=== PATIENT | female | born 1950 | race Caucasian/White ===

== ENCOUNTER → 2016-08-09 | Outpatient (CLI) | payer OTHER ==
[~2016-08-09] MED LIST: ACET-1256 PO; CALCTAB65 PO; LEVO125T5 PO; LOSA1TAB PO; MULTTAB58 PO
[2016-08-09 15:43] LABS: BASO % 0.8 %; BASO ABS # 0.08 K/uL (0-0.2); COMPLETE YES; EOS % 5.6 %; IG% 0.2 %; LYMPH % 28.4 %; MEAN CELL VOLUME 90.9 fL (80-100); MEAN CORPUSCULAR HEMOGLOBIN 30.1 pg (25-34); MEAN CORPUSCULAR HGB CONC 33.2 g/dl (32-36); MEAN PLATELET VOLUME 11.6 fL (7.4-10.4); MONO % 7.1 %; NEUT % 57.9 %; PLATELET COUNT 324 K/uL (130-400); RED BLOOD COUNT 4.18 M/uL (4.2-5.4); WHITE BLOOD COUNT 9.85 K/uL (4.8-10.8)
[2016-08-09 17:32] LABS: ALB/GLOB RATIO 0.8 (0.9-2); ALT/SGPT 27 U/L (12-78); AST/SGOT 15 U/L (15-37); BLOOD UREA NITROGEN 12 mg/dl (7-18); BUN/CREATININE RATIO 17.5 (10-20); CALCIUM 8.7 mg/dl (8.5-10.1); CARBON DIOXIDE 26 mmol/L (21-32); CHLORIDE 106 mmol/L (98-107); CREATININE 0.71 mg/dl (0.60-1.20); GLUCOSE 90 mg/dl (70-99); SODIUM 141 mmol/L (136-145)
[2016-08-09 17:41] LABS: ALKALINE PHOSPHATASE 63 U/L (45-117)
== END | disposition home or self-care (01) ==
LOC: C.LABSPEC 15:17
PROVIDERS: ATTEND Internal Medicine
DX: R05 Cough (principal); E03.9 Hypothyroidism, unspecified

== ENCOUNTER → 2016-08-15 | Outpatient (CLI) | payer OTHER ==
[~2016-08-15] MED LIST changes: -ACET-1256 PO; +LEVO125T4 PO; -LEVO125T5 PO; -LOSA1TAB PO
--- NOTE | 2016-08-15 13:58 | DIAGNOSTIC IMAGING REPORT ---
CHEST 2 VIEWS ROUTINE CLINICAL HISTORY: COUGH SHORTNESS OF BREATH COMPARISON STUDY: 06/24/2015 FINDINGS: The heart remains normal in size. There is underlying interstitial lung disease similar to the preceding study. There is no lobar consolidation. There are no pleural effusions. There is no overt failure.[ IMPRESSION: Chronic interstitial thickening, minimally progressive when compared the preceding study. Electronically signed by: Kin Naranjo M.D. 08/15/2016 1:56 PM Dictated Date/Time: 08/15/2016 1:56 PM
--- NOTE | 2016-08-17 07:07 | PULMONARY FUNCTION TEST ---
INTERPRETATION: The spirometry reveals normal air flow with no change in FEV1 with use of albuterol. Slight reduction in the forced vital capacity suggests a mild restrictive disorder that is supported by the volume time curve.
== END | disposition home or self-care (01) ==
LOC: C.RC 12:55
PROVIDERS: ATTEND Internal Medicine
DX: R05 Cough (principal); F17.200 Nicotine dependence, unspecified, uncomplicated

== ENCOUNTER → 2016-09-15 | Outpatient (CLI) | payer OTHER | END | disposition home or self-care (01) | LOC: C.CPL 13:28 | PROVIDERS: ATTEND Orthopaedic Surgery | DX: Z01.818 Encounter for other preprocedural examination (principal) ==

== ENCOUNTER → 2017-01-02 | Outpatient (CLI) | payer OTHER ==
[~2017-01-02] MED LIST changes: -LEVO125T4 PO; +LEVO125T5 PO
== END | disposition home or self-care (01) ==
LOC: C.LABSPEC 12:22
PROVIDERS: ATTEND Internal Medicine
DX: N39.0 Urinary tract infection, site not specified (principal)

== ENCOUNTER → 2017-01-09 | Outpatient (CLI) | payer OTHER ==
--- NOTE | 2017-01-10 08:38 | PULMONARY FUNCTION TEST ---
CLINICAL DATA: A 66-year-old female with a height of 63 inches and a weight of [address] Lundberg for evaluation of dyspnea. Spirometry pre- and post-bronchodilator, lung volumes, and DLCO were performed. FINDINGS: Pre-bronchodilator spirometry demonstrates mild restrictive changes. FVC was 60% of predicted. FEV1 was 65% of predicted. QAJ20-23 was 86% of predicted. There was no significant improvement after inhaled bronchodilator. FVC improved 2% to 62% of predicted. FEV1 improved 3% to 67% of predicted. PTJ10-35 improved 7% to 92% of predicted. Lung volumes suggest air trapping with residual volume of 195% of predicted. Expiratory reserve volume was reduced most likely secondary to obesity. DLCO was severely reduced at 48% of predicted with a normal DLCO/VA. IMPRESSION: Mild restrictive disease on spirometry with no significant improvement after inhaled bronchodilator. Lung volumes do suggest possible air trapping with an elevated residual volume. DLCO was significantly reduced with a normal DL/VA. MTDD
== END | disposition home or self-care (01) ==
LOC: C.RC 11:06
PROVIDERS: ATTEND Internal Medicine
DX: R06.00 Dyspnea, unspecified (principal)

== ENCOUNTER → 2017-01-12 | Outpatient (CLI) | payer OTHER ==
[~2017-01-12] MED LIST changes: +PERFLUTREN LIPID MICROSPHERE (DEFINITY) IV ONE
--- NOTE | 2017-01-12 15:31 | EXERCISE STRESS ECHO ---
*NOTICE TO RECEIVING CONSTITUTION PARTY AGENCY This information is strictly Confidential and protected under [place] law. [place] law prohibits you from making any further disclosure of this information unless further disclosure is expressly permitted by the written consent of the person to whom it pertains or is authorized by law. A general authorization for the release of medical or other information is not sufficient for this purpose. Hospital accepts no responsibility if the information is made available to any other person, INCLUDING THE PATIENT. Interpretation Summary * Name: KAMRON ZHAO Study Date: 01/12/2017 08:23 AM BP: 139/76 mmHg * Patient Location: [facility] HR: 79 * : 1950 (M/d/yyy) Gender: Female Height: 63 in * Age: 66 yrs Ethnicity: [place] Weight: 222 lb * Ordering Physician: Manish Blake * Referring Physician: Manish Blake * Performed By: Jaylin Cardoso * * Reason For Study: EXERTIONAL DYSPNEA * BSA: 2.0 m2 * This was a normal stress echocardiogram. * The stress ECG response was normal * Exercise capacity is below average. * The left ventricular ejection fraction increases normally with stress. The left ventricular end-systolic cavity size reduces post-stress (normal response). The left ventricular wall motion with stress is normal. Procedure Details * ECHOEX, CPT #09650 * ECHO DOPPLER, CPT #[id number] * ECHO COLOR FLOW, CPT #[id number] * A contrast injection of Definity was performed to improve assessment of LV function. * Contrast was injected into an intravenous site in the right arm. * One vial of Definity ultrasound contrast was diluted in normal saline to a total volume of 10 ml. A total of '4' ml of solution was administered during imaging. * Lot # [id number] of Definity utilized for procedure. * Expiration date 01/21. * The attending nurse who injected the contrast agent was EMI VALENTINE RN. Left Ventricle * The left ventricle is normal in size. * There is mild concentric left ventricular hypertrophy. * Ejection Fraction = 60-65%. * Left ventricular systolic function is normal. * The left ventricular ejection fraction increases normally with stress. The left ventricular end-systolic cavity size reduces post-stress (normal response). The left ventricular wall motion with stress is normal. * Resting wall motion: Normal. Stress wall motion: Appropriate increase in Left ventricular systolic function and decrease in cavity size. No stress induced segmental wall motion abnormalities. * The left ventricular ejection fraction increases normally with stress. The left ventricular end-systolic cavity size reduces post-stress (normal response). The left ventricular wall motion with stress is normal. * No regional wall motion abnormalities noted. * The left ventricular wall motion is normal at rest. Right Ventricle * The right ventricle is normal in size and function. Atria * The left atrial size is normal. * Right atrial size is normal. Mitral Valve * The mitral valve is normal. * There is no mitral valve stenosis. * There is no mitral regurgitation noted. Tricuspid Valve * The tricuspid valve is normal. * There is no tricuspid stenosis. * There is trace tricuspid regurgitation. * Right ventricular systolic pressure is normal. Aortic Valve * The aortic valve is trileaflet. * The aortic valve opens well. * Aortic stenosis is absent. * No aortic regurgitation is present. Pulmonic Valve * The pulmonic valve is not well visualized. * The pulmonary valve is inadequately visualized, but the Doppler data is adequate for interpretation. * Pulmonic stenosis is absent. * There is no pulmonic valvular regurgitation. Pericardium * There is no pericardial effusion. Stress Parameters * The baseline ECG displays normal sinus rhythm. * Incomplete right bundle branch block. Normal ST segments and T waves. * The stress ECG response was normal * Arrhythmia noted in recovery: occasional PAC's. * Rest heart rate was '79' BPM. * Rest blood pressure was '139/76' * Maximum heart rate achieved was 136 bpm. * Maximum heart rate was 89 % of maximum age-predicted heart rate. * Maximum blood pressure was '212/45' * Total exercise time was '3:21' * Maximum exercise MET level achieved was '5.00' METS * Maximum treadmill speed was '2.50' miles per hour. * Maximum treadmill elevation was '12.00'% grade. * Exercise was terminated due to 'DYSPNEA' * The patient exhibited dyspnea during exercise. * Exercise was stopped due to dyspnea. * The patient exhibited a hypertensive response with stress. MMode 2D Measurements and Calculations IVSd 1.3 cm IVSs 1.6 cm LVIDd 3.4 cm LVIDs 2.2 cm LVPWd 1.2 cm LVPWs 1.5 cm IVS/LVPW 1.1 FS 33.5 % EDV(Teich) 46.1 ml ESV(Teich) 16.9 ml EF(Teich) 63.4 % EDV(cubed) 38.0 ml ESV(cubed) 11.2 ml EF(cubed) 70.6 % % IVS thick 19.2 % % LVPW thick 31.2 % LV mass(C)d 137.9 grams LV mass(C)dI 68.2 grams/m\S\2 LV mass(C)s 120.6 grams LV mass(C)sI 59.7 grams/m\S\2 CO(Teich) 2.3 l/min CI(Teich) 1.1 l/min/m\S\2 SV(Teich) 29.3 ml SI(Teich) 14.5 ml/m\S\2 CO(cubed) 2.1 l/min CI(cubed) 1.0 l/min/m\S\2 SV(cubed) 26.8 ml SI(cubed) 13.3 ml/m\S\2 ACS 2.0 cm LA dimension 3.8 cm asc Aorta Diam 2.9 cm LVOT diam 1.9 cm LVOT area 2.8 cm\S\2 LVAd ap4 25.7 cm\S\2 LVLd ap4 7.6 cm EDV(MOD-sp4) 71.0 ml LVAs ap4 14.3 cm\S\2 LVLs ap4 6.1 cm ESV(MOD-sp4) 28.2 ml EF(MOD-sp4) 60.3 % LVAd ap2 24.5 cm\S\2 LVLd ap2 7.3 cm EDV(MOD-sp2) 69.6 ml LVAs ap2 14.1 cm\S\2 LVLs ap2 6.1 cm ESV(MOD-sp2) 27.1 ml EF(MOD-sp2) 61.1 % CO(MOD-sp4) 3.3 l/min CI(MOD-sp4) 1.7 l/min/m\S\2 SV(MOD-sp4) 42.8 ml SI(MOD-sp4) 21.2 ml/m\S\2 CO(MOD-sp2) 3.3 l/min CI(MOD-sp2) 1.6 l/min/m\S\2 SV(MOD-sp2) 42.5 ml SI(MOD-sp2) 21.0 ml/m\S\2 Doppler Measurements and Calculations MV E max zane 96.0 cm/sec MV A max zane 105.7 cm/sec MV E/A 0.91 MV P1/2t max zane 97.7 cm/sec MV P1/2t 55.8 msec MVA(P1/2t) 3.9 cm\S\2 MV dec slope 512.8 cm/sec\S\2 MV dec time 0.24 sec Ao V2 max 150.3 cm/sec Ao max PG 9.0 mmHg Ao max PG (full) 3.2 mmHg LINDSEY(V,A) 2.2 cm\S\2 LINDSEY(V,D) 2.2 cm\S\2 LV V1 max PG 5.8 mmHg LV V1 max 120.6 cm/sec PA V2 max 101.8 cm/sec PA max PG 4.2 mmHg TR max zane 245.8 cm/sec
== END | disposition home or self-care (01) ==
LOC: C.CPL 08:20
PROVIDERS: ATTEND Internal Medicine
DX: R06.00 Dyspnea, unspecified (principal)

== ENCOUNTER → 2017-01-17 | Outpatient (CLI) | payer OTHER ==
[~2017-01-17] MED LIST changes: -PERFLUTREN LIPID MICROSPHERE (DEFINITY) IV ONE
[2017-01-17 14:37] LABS: HEMATOCRIT 37.8 % (37-47); MEAN CORPUSCULAR HGB CONC 32.3 g/dl (32-36); MEAN PLATELET VOLUME 10.7 fL (7.4-10.4); PLATELET COUNT 353 K/uL (130-400); WHITE BLOOD COUNT 7.79 K/uL (4.8-10.8)
[2017-01-17 14:39] LABS: BASO % 1.4 %; BASO ABS # 0.11 K/uL (0-0.2); COMPLETE YES; EOS % 3.9 %; IG% 0.1 %; LYMPH % 30.7 %; LYMPH ABS # 2.39 K/uL (1.2-3.4); MONO % 7.4 %; NEUT % 56.5 %
[2017-01-17 14:56] LABS: ALT/SGPT 21 U/L (12-78); AST/SGOT 13 U/L (15-37); BLOOD UREA NITROGEN 14 mg/dl (7-18); BUN/CREATININE RATIO 21.4 (10-20); CALCIUM 8.8 mg/dl (8.5-10.1); CARBON DIOXIDE 24 mmol/L (21-32); CHLORIDE 107 mmol/L (98-107); CREATININE 0.66 mg/dl (0.60-1.20); GLUCOSE 93 mg/dl (70-99); POTASSIUM 4.1 mmol/L (3.5-5.1); SODIUM 140 mmol/L (136-145)
[2017-01-17 15:04] LABS: ALB/GLOB RATIO 0.6 (0.9-2); ALKALINE PHOSPHATASE 72 U/L (45-117); RHEUMATOID FACTOR 36.8 U/mL (0-15)
[2017-01-19 18:35] LABS: ANTI-SS-A <1.0 NEG AI (<1.0 NEG); ANTI-SS-B <1.0 NEG AI (<1.0 NEG); Sm Antibody <1.0 NEG AI (<1.0 NEG)
== END | disposition home or self-care (01) ==
LOC: C.LABSPEC 12:43
PROVIDERS: ATTEND Internal Medicine
DX: J84.9 Interstitial pulmonary disease, unspecified (principal)

== ENCOUNTER → 2017-01-29 | Outpatient (CLI) | payer OTHER ==
[2017-01-31 16:22] LABS: ALBUMIN 3.6 G/DL (3.8-4.8); GAMMA GLOBULIN 1.9 G/DL (0.8-1.7); TOTAL PROTEIN 7.7 G/DL (6.2-8.3)
== END | disposition home or self-care (01) ==
LOC: C.LABSPEC 15:47
PROVIDERS: ATTEND Internal Medicine
DX: R68.89 Other general symptoms and signs (principal)

== ENCOUNTER → 2017-03-07 | Outpatient (CLI) | payer OTHER ==
[~2017-03-07] MED LIST changes: +LEVO125T4 PO; -LEVO125T5 PO
[2017-03-14 15:12] LABS: ASPERGILLUS FUMIGATUS NEGATIVE (NEGATIVE); M. FAENI (S. RECTIVIRGULA) NEGATIVE (NEGATIVE); MYELOPEROXIDASE AB <1.0 AI (<1.0); PIGEON SERUM NEGATIVE (NEGATIVE); SACCHAROMONOSPORA VIRIDIS AB NEGATIVE (NEGATIVE); THERMOACTINOMYCES CANDIDUS NEGATIVE (NEGATIVE); THERMOACTINOMYCES VULGARIS NEGATIVE (NEGATIVE)
== END | disposition home or self-care (01) ==
LOC: C.LAB1850 12:11
PROVIDERS: ATTEND Internal Medicine Pulmonary Disease
DX: J84.9 Interstitial pulmonary disease, unspecified (principal)

== ENCOUNTER → 2017-03-12 | Outpatient (CLI) | payer OTHER ==
--- NOTE | 2017-03-12 12:10 | DIAGNOSTIC IMAGING REPORT ---
(CHEST) THORAX WITHOUT CLINICAL HISTORY: Interstitial lung disease COMPARISON STUDY: Chest x-ray dated 08/15/2016 CT DOSE: 613.85 mGy.cm TECHNIQUE: CT of the thorax was performed from the thoracic inlet to the lung bases. Images are reviewed in the axial, sagittal, and coronal planes. IV contrast was not administered for this examination. A dose lowering technique was utilized adhering to the principles of ALARA. FINDINGS: Thyroid: Imaged portions of the thyroid gland are normal in appearance. Thoracic aorta: The thoracic aorta is normal in course and caliber, noting standard 3 vessel arch anatomy. Heart: There are coronary artery calcifications present. Lungs and pleural spaces: No pleural effusions are visualized. There is subpleural reticulation. There is no honeycombing. There is no significant traction bronchiectasis. There is no focal pulmonary consolidation. There is a 6 mm solid right upper lobe pulmonary nodule as visualized in image #[id number]. There is a 6 mm solid perifissural right upper lobe pulmonary nodule as visualized in image #[id number]. Mediastinum: There are borderline enlarged mediastinal lymph nodes Carina: There is no nodes of pathologic hilar adenopathy given the limitations of a noncontrast study Axilla: There is no pathologic axillary adenopathy Upper abdomen: There is renal scarring. There is a left renal calculus. Skeletal structures: There are no lytic or blastic osseous lesions. IMPRESSION: 1. Interstitial lung disease with subpleural reticulation, but no evidence of honeycombing and no significant traction bronchiectasis 2. There are two 6 mm solid right upper lobe point nodules. Please refer to below summary of Fleischner criteria recommendations for follow-up of incidental CT nodules (Gerry Vizcarra, Guidelines for management of small pulmonary nodules detected on CT scans: A statement from the Fleischner Society, Radiology 237: [phone].) SOLID NODULES Solitary nodule size: <6 mm * low risk patients: no follow-up needed * high risk patients: optional CT at 12 months Solitary nodule size: 6-8 mm * low risk patients: follow-up at 6-12 months, then consider further follow-up at 18-24 months * high risk patients: initial follow-up CT at 6-12 months and then at 18-24 months if no change Solitary nodule size: >8 mm * either low or high risk patients - consider follow-up CT at 3 months, and/or CT-PET, and/or biopsy Multiple nodules size: <6 mm * low risk patients: no routine follow-up * high risk patients: optional CT at 12 months Multiple nodules size: 6-8 mm * low risk patients: follow-up at 3-6 months, then consider further follow-up at 18-24 months * high risk patients: follow-up at 3-6 months, then at 18-24 months if no change Multiple nodules size: >8 mm * low risk patients: follow-up at 3-6 months, then consider further follow-up at 18-24 months * high risk patients: follow-up at 3-6 months, then at 18-24 months if no change Note: newly detected indeterminate nodule in persons 35 years of age or older. * low risk patients: minimal or absent history of smoking and/or other known risk factors * high risk patients: history of smoking or of other known risk factors (e.g. first degree relative with lung cancer, or exposure to asbestos, radon, uranium) * if a nodule up to 8 mm is partly solid or is ground glass further follow-up is required after 24 months to exclude possible slow growing adenocarcinoma (SUZY) SUBSOLID NODULES Solitary pure ground-glass nodule * nodule size <6 mm - no CT follow-up required * nodule size >=6 mm - follow-up CT at 6-12 months, then every 2 years until 5 years Solitary part-solid nodule * nodule size <6 mm - no CT follow-up required * nodule size >=6 mm - follow-up CT at 3-6 months. If unchanged, and solid component remains <6 mm, then annual follow-up for 5 years Multiple subsolid nodules * nodule size <6 mm - follow-up CT at 3-6 months, consider further follow-up at 2 and 4 years if stable * nodule size >=6 mm - follow-up CT at 3-6 months, subsequent management based on the most suspicious nodule(s) Electronically signed by: Kin Naranjo M.D. 03/12/2017 12:09 PM Dictated Date/Time: 03/12/2017 12:03 PM
== END | disposition home or self-care (01) ==
LOC: C.CTS 11:15
PROVIDERS: ATTEND Internal Medicine Pulmonary Disease
DX: J84.9 Interstitial pulmonary disease, unspecified (principal); R91.8 Other nonspecific abnormal finding of lung field

== ENCOUNTER → 2017-03-20 | Outpatient (CLI) | payer OTHER ==
[2017-03-20 15:14] LABS: ALT/SGPT 24 U/L (12-78); BLOOD UREA NITROGEN 16 mg/dl (7-18); BUN/CREATININE RATIO 21.5 (10-20); CALCIUM 9.1 mg/dl (8.5-10.1); CARBON DIOXIDE 25 mmol/L (21-32); CHLORIDE 107 mmol/L (98-107); CREATININE 0.74 mg/dl (0.60-1.20); GLUCOSE 93 mg/dl (70-99); POTASSIUM 4.3 mmol/L (3.5-5.1); SODIUM 138 mmol/L (136-145)
[2017-03-20 15:17] LABS: ALB/GLOB RATIO 0.7 (0.9-2); ALKALINE PHOSPHATASE 71 U/L (45-117); AST/SGOT 18 U/L (15-37)
[2017-03-20 16:19] LABS: BASO % 0.7 %; BASO ABS # 0.05 K/uL (0-0.2); COMPLETE YES; EOS % 6.2 %; HEMATOCRIT 37.1 % (37-47); IG% 0.1 %; LYMPH % 29.2 %; LYMPH ABS # 2.03 K/uL (1.2-3.4); MEAN CELL VOLUME 89.6 fL (80-100); MEAN CORPUSCULAR HGB CONC 33.4 g/dl (32-36); MEAN PLATELET VOLUME 11.1 fL (7.4-10.4); MONO % 9.8 %; PLATELET COUNT 290 K/uL (130-400); RED BLOOD COUNT 4.14 M/uL (4.2-5.4); WHITE BLOOD COUNT 6.95 K/uL (4.8-10.8)
== END | disposition home or self-care (01) ==
LOC: C.LABSPEC 14:48
PROVIDERS: ATTEND Internal Medicine
DX: R19.00 Intra-abdominal and pelvic swelling, mass and lump, unspecified site (principal)

== ENCOUNTER → 2017-03-23 | Outpatient (CLI) | payer OTHER ==
[~2017-03-23] MED LIST changes: +OPTIRAY 320 IV PRN
--- NOTE | 2017-03-23 10:13 | DIAGNOSTIC IMAGING REPORT ---
ABD/PELVIS IV AND ORAL CONT CT DOSE: 1193.84 mGycm HISTORY: Mass RT SIDED ABDOMINAL MASS TECHNIQUE: Multiaxial CT images of the abdomen and pelvis were performed following the use of intravenous and oral contrast. A dose lowering technique was utilized adhering to the principles of ALARA. COMPARISON STUDY: None. FINDINGS: Mild chronic bibasilar interstitial change. Mild fatty infiltration of liver. Liver is otherwise uniform. Gallbladder is negative for distention. The adrenal glands are unremarkable. Cortical scarring of the kidneys bilaterally. Several nonobstructing punctate lower pole left renal calcifications. Nonobstructive bowel pattern. Curvilinear fluid pocket anterior to the mid abdominal region in a periumbilical location measuring 5 x 2 cm. This most likely represents a postprocedural hematoma or seroma. No evidence for an intra-abdominal or intrapelvic mass or collection. Bladder is midline. IMPRESSION: 1. Fluid pocket anterior to the mid abdominal wall deep to the umbilicus measuring 5 x 2 cm. 2. This most likely represents a postprocedural hematoma or seroma. 3. Moderate cortical scarring of both kidneys with several nonobstructing lower pole left renal calcifications. 4. No evidence for an intra-abdominal or intrapelvic mass The above report was generated using voice recognition software. It may contain grammatical, syntax or spelling errors. Electronically signed by: Tex Nickerson M.D. 03/23/2017 10:12 AM Dictated Date/Time: 03/23/2017 10:08 AM
== END | disposition home or self-care (01) ==
LOC: C.CTS 09:05
PROVIDERS: ATTEND Internal Medicine
DX: R19.00 Intra-abdominal and pelvic swelling, mass and lump, unspecified site (principal)

== ENCOUNTER → 2017-04-16 | Outpatient (CLI) | payer OTHER ==
[~2017-04-16] MED LIST changes: -OPTIRAY 320 IV PRN
--- NOTE | 2017-04-16 15:52 | MAMMOGRAPHY REPORT ---
BILATERAL DIGITAL SCREENING MAMMOGRAM WITH CAD: 04/16/2017 CLINICAL HISTORY: Routine screening. Patient has no complaints. TECHNIQUE: Bilateral CC and MLO views were obtained. Current study was also evaluated with a Compute r Aided Detection (CAD) system. COMPARISON: Comparison is made to exams dated: 04/13/2016 mammogram, 03/30/2015 mammogram, 03/10/2014 keith mogram, 03/03/2013 mammogram, 02/28/2012 mammogram, and 01/12/2011 mammogram - [facility] er. BREAST COMPOSITION: The tissue of both breasts is almost entirely fatty. FINDINGS: The parenchymal pattern is unchanged. No developing mass, architectural distortion or clus ter of suspicious microcalcifications is seen in either breast. IMPRESSION: ACR BI-RADS CATEGORY 2: BENIGN There is no mammographic evidence of malignancy. A 1 year screening mammogram is recommended. The pa tient will receive written notification of the results. Approximately 10% of breast cancers are not detected with mammography. A negative mammographic report should not delay biopsy if a clinically suggestive mass is present. Luzma Valiente M.D. ay/:04/16/2017 15:05:05 [facility] Manager: Juana Bryson, [facility] letter sent: Normal 1/2 BI-RADS Code: ACR BI-RADS Category 2: Benign
== END | disposition home or self-care (01) ==
LOC: C.MAMM 10:10
PROVIDERS: ATTEND Internal Medicine
DX: Z12.31 Encounter for screening mammogram for malignant neoplasm of breast (principal)

== ENCOUNTER → 2017-07-11 | Outpatient (CLI) | payer OTHER ==
[~2017-07-11] MED LIST changes: -LEVO125T4 PO; +LEVO125T5 PO
[2017-07-11 11:05] LABS: ARTERIAL BLOOD GAS BASE EXCESS 0.8 mEq/L (-9-1.8); ARTERIAL BLOOD GAS HCO3 25 mmol/L (19-24); ARTERIAL BLOOD GAS PO2 50 mm/Hg (80-95); ARTERIAL BLOOD GAS pH 7.41 (7.35-7.45)
[2017-07-11 11:06] LABS: ALLEN TEST POS (POS); O2 ADMINISTRATION ROOM AIR
[2017-07-11 12:23] LABS: BASO ABS # 0.09 K/uL (0-0.2); COMPLETE YES; EOS % 3.4 %; HEMATOCRIT 36.7 % (37-47); IG% 0.2 %; LYMPH % 25.1 %; LYMPH ABS # 2.19 K/uL (1.2-3.4); MEAN CELL VOLUME 91.3 fL (80-100); MEAN CORPUSCULAR HEMOGLOBIN 30.1 pg (25-34); MEAN PLATELET VOLUME 10.8 fL (7.4-10.4); MONO % 6.3 %; PLATELET COUNT 272 K/uL (130-400); RED BLOOD COUNT 4.02 M/uL (4.2-5.4); WHITE BLOOD COUNT 8.74 K/uL (4.8-10.8)
[2017-07-11 12:30] LABS: PROTHROMBIN TIME (PATIENT) 10.4 SECONDS (9.0-12.0)
[2017-07-11 13:07] LABS: ALB/GLOB RATIO 0.7 (0.9-2); ALKALINE PHOSPHATASE 77 U/L (45-117); ALT/SGPT 25 U/L (12-78); BLOOD UREA NITROGEN 13 mg/dl (7-18); BUN/CREATININE RATIO 20.4 (10-20); CALCIUM 9.3 mg/dl (8.5-10.1); CARBON DIOXIDE 26 mmol/L (21-32); CHLORIDE 105 mmol/L (98-107); CREATININE 0.62 mg/dl (0.60-1.20); GLUCOSE 92 mg/dl (70-99); POTASSIUM 3.7 mmol/L (3.5-5.1); SODIUM 135 mmol/L (136-145)
[2017-07-11 13:11] LABS: AST/SGOT 17 U/L (15-37)
== END | disposition home or self-care (01) ==
LOC: C.LAB 10:37
PROVIDERS: ATTEND Internal Medicine Pulmonary Disease
DX: J84.9 Interstitial pulmonary disease, unspecified (principal)

== ENCOUNTER 2017-08-15 07:46 | Inpatient (IN) | payer OTHER ==
[2017-08-03 12:44] VITALS: BMI 25.0
[~2017-08-15] VITALS: Ht 160 cm; Wt 65.5 kg
[2017-08-15] VITALS (11 sets, daily range): BP systolic 144–183; BP diastolic 68–78; PULSE 63–103; TEMP 36.4–36.6; O2SAT 93–99; Ht 160 cm; Wt 65.5 kg
[~2017-08-15 07:46] MED LIST changes: +ACET-1256 PO; -CALCTAB65 PO; +LIDOCAINE HCL 2% 2 ML VIAL (20MG/ML) ONE; +LOSA1TAB PO; -MULTTAB58 PO; +PROPOFOL IV EMULSION 10 MG/ML 20 ML VIAL IV ONE
[2017-08-15] MEDS ORDERED: BUPIVACAINE LIPOSOME 1/3% 266 MG/20 ML VIAL INFIL ONE (08:13)
[2017-08-15] MEDS ORDERED: SODIUM CHLORIDE 0.9% PF 50 ML VIAL ONE (08:13)
--- NOTE | 2017-08-15 08:19 | History & Physical Bridge Note ---
H&P Re-Evaluation Bridge Note: I have examined the patient, reviewed the History & Physical and in the interval since the performance of the History & Physical I have noted the following changes of clinical significance: Discussed robot assistance with patient. She is agreeable.No changes noted
[2017-08-15] MEDS ORDERED: NEOSTIGMINE METHYLSULFATE 5 MG/5 ML SYR ONE (08:36)
[2017-08-15] MEDS ORDERED: MIDAZOLAM HCL 1 MG/ML 2ML VIAL ONE (08:36)
[2017-08-15] MEDS ORDERED: GLYCOPYRROLATE INJ 0.2 MG/ML VIAL ONE (08:36)
[2017-08-15] MEDS ORDERED: ONDANSETRON INJ 2 MG/ML 2 ML VIAL ONE (08:36)
[2017-08-15] MEDS ORDERED: ROCURONIUM BROMIDE 10 MG/ML 5 ML VIAL IV ONE (08:36)
[2017-08-15] MEDS ORDERED: FENTANYL CITRATE INJ 50 MCG/1 ML 2 ML VIAL ONE ×2 (08:36→09:35)
[2017-08-15] MEDS ORDERED: HYDROmorphone INJ 1 MG/ML SYR IV PRN (08:45)
[2017-08-15] MEDS ORDERED: ONDANSETRON INJ 2 MG/ML 2 ML VIAL IV PRN ×2 (08:45→10:30)
[2017-08-15] MEDS ORDERED: EpHEDrine SULFATE INJ 50 MG/ML AMP IV PRN (08:45)
[2017-08-15] MEDS ORDERED: PROMETHAZINE HCL INJ 6.25 MG in SODIUM CHLORIDE 0.9% 50ML 50 ML IV PRN (08:45)
[2017-08-15] MEDS ORDERED: ATROPINE SULFATE 0.1 MG/ML 5ML SYR IV PRN (08:45)
--- NOTE | 2017-08-15 10:14 | [facility] Post Operative Brief Note ---
Immediate Operative Summary Operative Date Aug 15, 2017. Pre-Operative Diagnosis Interstitial Lung Disease Post-Operative Diagnosis Same as preop Procedure(s) Performed Robot assisted thoracoscopic biopsy RUL /RLL Surgeon Dr. Son Supervisor Paper Coating Surgeon(s) Ozzy Salcedo PA-C Estimated Blood Loss 2 ml Findings same Specimens A. Right Upper Lobe Tissue B. Left upper Lobe Tissue Microbiology 1. Lung Tissue for culture and sensitivity, aerobic, anerobic, gram staim, AFB, Fungal
[2017-08-15] MEDS ORDERED: DEXAMETHASONE SOD INJ 4 MG/ML VIAL ONE (10:21)
[2017-08-15] MEDS ORDERED: EpHEDrine SULFATE 50MG/5ML SYR ONE (10:22)
[2017-08-15] MEDS ORDERED: PHENYLEPHRINE 100MCG/ML 5ML SYR ONE (10:22)
[2017-08-15] MEDS ORDERED: OXYCODONE HCL IR 5 MG TAB (IMMEDIATE RELEASE) PO PRN (10:30)
[2017-08-15] MEDS ORDERED: MoRPHine SULFATE 2 MG/ML CARP IV PRN (10:30)
[2017-08-15] MEDS: FENTANYL CITRATE INJ 50 MCG/1 ML 2 ML VIAL IV PRN ×4 (10:45→11:00)
--- NOTE | 2017-08-15 11:07 | OPERATIVE REPORT ---
DATE OF OPERATION: 08/15/2017 PREOPERATIVE DIAGNOSIS: Probable pulmonary fibrosis. POSTOPERATIVE DIAGNOSIS: Same. PROCEDURE: Robot-assisted thoracoscopic biopsy of right upper lobe, right middle lobe. SURGEON: Dr. Son. NEONATAL ICU COORDINATOR: Jb Salcedo PA-C. (Mr. Salcedo was present for the entire case and was at the bedside assisting while I was at the surgeon's consult). In addition, he closed the 3 incisions at the end. The patient tolerated it well. PROCEDURE: The patient was brought to the operating room and laid supine position. General anesthesia induced and endotracheal intubation was performed with double lumen tube. The patient was placed in the left lateral decubitus position, her right chest was prepped and draped in usual sterile fashion. One lung ventilation ensued. After appropriate timeout had been called incision was made just at the tip of the scapula a little bit anterior. A small Veress needle was placed and CO2 was insufflated. The 5 mm port was then placed through this with CO2 insufflation and a 5 mm thoracoscopic port was placed and it could be seen that there were no adhesions. I then placed a 5 mm port posteriorly at about the eighth interspace in the posterior axillary line and then I put a 12 mm port anteriorly at about the eighth interspace just above the diaphragm. I then switched out the 5 mm port for 0.5 mm port. A 5 mm grasper was placed through the posterior port and I was able to see the abnormal portion of the lung. The da Dolores robotic stapler was used through the 12 mm port and I removed a good biopsy of the upper lobe and the lower lobe. Portions were sent for culture. There was no bleeding or air leak. 266 mg of Exparel were mixed with a total of 40 mL of saline for a total of 60 mL of solution was injected under thoracoscopic guidance from the 2nd rib to the 11th rib for an intercostal block. A 24-Salvadorean chest tube was placed in the anterior thoracoscopy port and positioned at the apex. It was sutured in place with heavy silk suture. 0 Vicryl was used to close the 8.5 mm port muscle layer and 4-0 Monocryl was used to close the skin of all the incisions. She tolerated it well and was extubated in the room. I attest to the content of the Intraoperative Record and any orders documented therein. Any exception s are noted below.
--- NOTE | 2017-08-15 11:23 | DIAGNOSTIC IMAGING REPORT ---
CHEST ONE VIEW PORTABLE CLINICAL HISTORY: WEDGE RESECTION postoperative evaluation COMPARISON STUDY: 1 05/15/2017 FINDINGS: Postoperative changes right hemithorax with placement of right-sided chest tube. Minimal right apical pneumothorax with a maximum pleural separation of 3 mm. Diffuse increase in interstitial parenchymal markings throughout both hemithoraces. IMPRESSION: Trace/minimal right apical pneumothorax with a maximum pleural separation of 3 mm. 2. Right-sided chest tube in good position. 3. Moderate prominence of bronchovascular markings bilaterally. The above report was generated using voice recognition software. It may contain grammatical, syntax or spelling errors. Electronically signed by: Tex Nickerson M.D. 08/15/2017 11:22 AM Dictated Date/Time: 08/15/2017 11:20 AM
--- NOTE | 2017-08-15 11:36 | Anesthesiology Progress Note ---
Anesthesia Post Op Note Date & Time Aug 15, 2017 at 11:36 Vital Signs Pain Intensity: 4 Vital Signs Past 12 Hours Date Time Temp Pulse Resp B/P (MAP) Pulse Ox O2 Delivery O2 Flow Rate FiO2 08/15/17 11:20 72 16 160/69 100 Nasal Cannula 3 08/15/17 11:10 36.2 72 14 140/54 100 Nasal Cannula 3 08/15/17 11:00 77 14 154/76 100 Oxymask 5 08/15/17 10:50 79 14 168/73 100 Oxymask 5 08/15/17 10:41 36.0 93 14 179/74 100 Oxymask 5 08/15/17 08:20 36.6 73 20 183/76 96 Room Air Notes Mental Status: alert / awake / arousable, participated in evaluation Pt Amnestic to Procedure: Yes Nausea / Vomiting: adequately controlled Pain: adequately controlled Airway Patency, RR, SpO2: stable & adequate BP & HR: stable & adequate Hydration State: stable & adequate Anesthetic Complications: no major complications apparent
[2017-08-15] MEDS: METOCLOPRAMIDE HCL INJ 5 MG/ML 2 ML VIAL IV. SCH ×2 (14:06→21:29)
[2017-08-15] MEDS: D5W AND 1/2NSS 1,000 ML IV SCH (14:06)
[2017-08-15] MEDS: ACETAMINOPHEN IV 1,000 MG in EMPTY BAG 0 ML IV SCH ×2 (14:07→21:30)
[2017-08-15] MEDS: KETOROLAC TROMETHAMINE 15 MG/ML VIAL IV. SCH ×2 (14:07→21:30)
[2017-08-15] MEDS: CEFAZOLIN IV 2,000 MG in SYRINGE 0 ML IV SCH (17:51)
[2017-08-15] MEDS: DOCUSATE SODIUM 100 MG CAP PO SCH (21:29)
[2017-08-16] MEDS: CEFAZOLIN IV 2,000 MG in SYRINGE 0 ML IV SCH ×2 (02:36→10:00)
[2017-08-16] MEDS: D5W AND 1/2NSS 1,000 ML IV SCH (02:37)
[2017-08-16 03:35] VITALS: BP 145/76; PULSE 68; TEMP 36.5; O2SAT 93
[2017-08-16 05:50] VITALS: O2SAT 94
[2017-08-16] MEDS: METOCLOPRAMIDE HCL INJ 5 MG/ML 2 ML VIAL IV. SCH (06:00)
[2017-08-16] MEDS: KETOROLAC TROMETHAMINE 15 MG/ML VIAL IV. SCH ×2 (06:00→11:52)
[2017-08-16] MEDS: ACETAMINOPHEN IV 1,000 MG in EMPTY BAG 0 ML IV SCH (06:00)
[2017-08-16] MEDS ORDERED: LEVOTHYROXINE 125 MCG TAB PO SCH (06:00)
[2017-08-16 06:30] LABS: CREATININE 0.76 mg/dl (0.60-1.20)
--- NOTE | 2017-08-16 07:00 | DIAGNOSTIC IMAGING REPORT ---
CHEST ONE VIEW PORTABLE CLINICAL HISTORY: WEDGE RESECTION COMPARISON STUDY: 08/15/2017 FINDINGS: The cardiac and mediastinal contours remain stable. A right-sided chest tube is again visualized. There is no significant pneumothorax. There is a stable 29 mm right midlung zone opacity. There are diffusely increased interstitial markings, likely representing congestive failure/fluid overload.[ IMPRESSION: 1. No evidence of pneumothorax 2. Stable 29 mm right midlung zone opacity 3. Suspected mild pulmonary vascular congestion/fluid overload Electronically signed by: iKn Naranjo M.D. 08/16/2017 6:59 AM Dictated Date/Time: 08/16/2017 6:58 AM
[2017-08-16 07:30] VITALS: BP 152/72; PULSE 64; TEMP 36.5; O2SAT 93
[2017-08-16] MEDS ORDERED: CLC100 PO (08:10)
[2017-08-16] MEDS ORDERED: ULT/50 PO (08:10)
--- NOTE | 2017-08-16 08:12 | Discharge Instructions ---
Discharge Instructions Date of Service Aug 16, 2017. Admission Reason for Admission: Interstitial Lung Disease Discharge Discharge Diagnosis / Problem: Interstitial Lung Disease Discharge Goals Goal(s): Learn about illness Activity Recommendations Activity Limitations: as noted below Lifting Limitations: none 1. Do not drive until cleared to do so by Dr. Son. 2. You may remove dressings in 3 days. No tub baths. 3. Do not drive if taking ultram. . Instructions / Follow-Up Instructions / Follow-Up 1. Office appointment with Dr. Son in 1 week. Office will call you with date and time of appointment. Go to hospital 1 hour before appointment to have a chest x-ray taken. Current Hospital Diet Patient's current hospital diet: Regular Diet Discharge Diet Recommended Diet: Regular Diet Procedures Procedures Performed: Robot assisted thoracoscopic biopsy RUL /RLL Pending Studies Studies pending at discharge: no Medical Emergencies . Who to Call and When: Medical Emergencies: If at any time you feel your situation is an emergency, please call 911 immediately. . Non-Emergent Contact Non-Emergency issues call your: Surgeon Call Non-Emergent contact if: you have a fever, your pain is not controlled, wound has increased drainage . "Provider Documentation" section prepared by Ozzy Salcedo. . VTE Core Measure Inpt VTE Proph given/why not?: Enoxaparin (Lovenox)SQ
--- NOTE | 2017-08-16 08:27 | DIAGNOSTIC IMAGING REPORT ---
CHEST ONE VIEW PORTABLE CLINICAL HISTORY: tube removal COMPARISON STUDY: 08/16/2017 FINDINGS: The cardiac and mediastinal contours remain stable. There has been interval removal of the right-sided chest tube. There is no pneumothorax. There is a stable 29 mm right midlung zone opacity. Diffuse interstitial thickening remains similar.[ IMPRESSION: Interval removal of the right-sided chest tube. No evidence of pneumothorax. Electronically signed by: Kin Naranjo M.D. 08/16/2017 8:25 AM Dictated Date/Time: 08/16/2017 8:25 AM
[2017-08-16] MEDS ORDERED: ENOXAPARIN 40 MG/0.4 ML SYR SQ SCH (09:00)
[2017-08-16] MEDS ORDERED: LOSARTAN POTASSIUM 25 MG TAB PO SCH (09:00)
[2017-08-16] MEDS: DOCUSATE SODIUM 100 MG CAP PO SCH (09:44)
--- NOTE | 2017-08-16 09:53 | Discharge Summary ---
Discharge Summary Date of Service Aug 16, 2017. Discharge Summary Admission Date: Aug 15, 2017 at 08:20 Discharge Date: Aug 16, 2017 Discharge Disposition: Home Principal Diagnosis: Interstitial Lung Disease Procedures: Robotic Assisted Right VATS with Lung Biopsy Medication Reconciliation New Medications: Tramadol Hcl (Ultram) 50 Mg Tab 50 MG PO Q4H, #25 TAB PRN PAIN Docusate Sodium (Docusate Sodium) 100 Mg Cap 100 MG PO BID for 30 Days, #60 CAP 0 Refills Continued Medications: Acetaminophen (Tylenol) 500 Mg Tab 1000 MG PO PRN, TAB Levothyroxine Sodium (Levothyroxine Sodium) 125 Mcg Tab 1 TAB PO QAM Losartan Potassium (Cozaar) 25 Mg Tab 25 MG PO QAM, TAB Discharge Exam Review of Systems: Constitutional: No fever, No chills Respiratory: No cough, No sputum, No shortness of breath Cardiovascular: No chest pain Abdomen: No pain, No nausea, No vomiting Physical Exam: General Appearance: WD/WN, no apparent distress Respiratory/Chest: no respiratory distress, no accessory muscle use, + decreased breath sounds (at bases) Cardiovascular: regular rate, rhythm Abdomen / GI: non tender, soft Extremities: no calf tenderness Neurologic/Psychiatric: alert, oriented x 3 Hospital Course 67 year old female with suspected interstitial lung disease -robotic assisted right VATS with lung biopsy performed 08/15/17 -cultures sent and are (-) to date -pathology pending at time of d/c -chest tube managed in appropriate fashion and removed on 08/16/17: -post-pull CXR showed no pneumothorax -pain control measures implemented -use of IS, coughing, deep breathing, and ambulation encouraged post-op OTHER -lovenox utilized for DVT prevention Total Time Spent: Greater than 30 minutes This includes examination of the patient, discharge planning, medication reconciliation, and communication with other providers. Discharge Instructions Please refer to the electronic Patient Visit Report (Discharge Instructions) for additional information. Follow-Up 1. Dr. Son in 1 week with CXR Additional Copies To Willis Barfield DO
[2017-08-16 10:35] VITALS: BP 152/72; PULSE 64; TEMP 36.5; O2SAT 93
[2017-08-16] MEDS ORDERED: ACETAMINOPHEN 325 MG TAB PO SCH (12:00)
== END 2017-08-16 12:10 | disposition home or self-care (01) | DRG 168 ==
LOC: C.ACU 07:46 → C.MSN 08:20 → ENRESERV 11:08
PROVIDERS: ADMIT Surgery; ATTEND Surgery
PROC: 0BBC4ZX Excision of Right Upper Lung Lobe, Percutaneous Endoscopic Approach, Diagnostic (ICD-10-PCS; principal; 2017-08-15 09:45)
PROC: 0W9940Z Drainage of Right Pleural Cavity with Drainage Device, Percutaneous Endoscopic Approach (ICD-10-PCS; principal; 2017-08-15 09:45)
PROC: 0BBD4ZX Excision of Right Middle Lung Lobe, Percutaneous Endoscopic Approach, Diagnostic (ICD-10-PCS; principal; 2017-08-15 09:45)
DX: J84.9 Interstitial pulmonary disease, unspecified (principal); R91.8 Other nonspecific abnormal finding of lung field; I10 Essential (primary) hypertension; E66.9 Obesity, unspecified; Z87.891 Personal history of nicotine dependence; Z79.899 Other long term (current) drug therapy

== ENCOUNTER → 2017-08-23 | Outpatient (CLI) | payer OTHER ==
[~2017-08-23] MED LIST changes: +CLC100 PO; -LIDOCAINE HCL 2% 2 ML VIAL (20MG/ML) ONE; -PROPOFOL IV EMULSION 10 MG/ML 20 ML VIAL IV ONE; +ULT/50 PO
--- NOTE | 2017-08-23 14:12 | DIAGNOSTIC IMAGING REPORT ---
CHEST 2 VIEWS ROUTINE HISTORY: J84.9 Interstitial lung [id number] COMPARISON: Chest 08/16/2017. FINDINGS: No pneumothorax. Stable blunting of the costophrenic sulci. Diffuse interstitial thickening and low lung volumes persist. The heart remains normal in size. Stable 2.4 cm right midlung zone nodular density surrounding the suture material. IMPRESSION: No change compared to prior study. Diffuse interstitial thickening persists. Stable 2.4 cm right midlung zone nodular density surrounding the suture material. Follow-up recommended to ensure stability/resolution. Electronically signed by: Endy Bravo M.D. 08/23/2017 2:11 PM Dictated Date/Time: 08/23/2017 2:09 PM
== END | disposition home or self-care (01) ==
LOC: C.RAD1850 13:54
PROVIDERS: ATTEND Surgery
DX: J84.9 Interstitial pulmonary disease, unspecified (principal)

== ENCOUNTER → 2017-12-20 | Outpatient (CLI) | payer OTHER ==
--- NOTE | 2017-12-20 13:29 | DIAGNOSTIC IMAGING REPORT ---
(CHEST) THORAX WITHOUT CT DOSE: 630.87 mGycm CLINICAL HISTORY: 67 years-old Female with J84.9 Interstitial lung [id number] lung nodules on CT. History of interstitial lung disease. Follow-up study in a patient with history of pulmonary nodules TECHNIQUE: Multiaxial CT images of the chest were performed without contrast. A dose lowering technique was utilized adhering to the principles of ALARA. COMPARISON: Chest CT 03/12/2017, chest radiographs 08/23/2017 FINDINGS: No dominant thyroid nodule. Mildly enlarged axillary lymph nodes with fatty stalin measure up to 10 mm bilaterally. Mildly enlarged 11 mm subcarinal lymph node is also seen with paratracheal lymph nodes measuring up to 8 mm and prevascular lymph nodes measuring up to 6 mm. These findings appear unchanged from comparison. Coronary arterial calcifications are noted. No pericardial effusion. The heart appears normal in size. Mild dilation of the main pulmonary artery, 3.0 cm. No thoracic aortic aneurysm. Surgical suture material is noted about the right upper lobe posterior segment. Unchanged solid 6 mm nodule of the right upper lobe, image 100 of series 4 with stable 6 mm nodule abutting the minor fissure within the anterior segment right upper lobe, image 116 series 4. No new or enlarging pulmonary nodules identified. Central airways are patent. No pneumothorax or pleural effusion. Multifocal multilobar distribution of subpleural reticulation with thickening of the bronchovascular bundles and areas of groundglass density are noted. No significant bronchiectasis or honeycombing identified. Pattern of disease appears unchanged from comparison study. No significant air trapping identified. Cortical scarring and lobulation about the left kidney with nonobstructing 2 mm calculus of the superior pole. Soft tissues are unremarkable. The bones of the chest appear intact. Multilevel endplate spurring about the thoracic spine. IMPRESSION: 1. Redemonstration of multifocal multilobar subpleural reticulation with groundglass densities. No significant honeycombing or bronchiectasis identified. These findings are most compatible with nonspecific interstitial pneumonia (NSIP) pattern of interstitial lung disease of unknown clinical etiology. 2. Unchanged size and appearance of the two 6 mm solid nodules of the right upper lobe without new or enlarging pulmonary nodules identified. 3. Nonspecific mild mediastinal adenopathy is also unchanged. 4. Mild dilation of the main pulmonary artery may reflect underlying pulmonary arterial hypertension within the appropriate clinical setting. 5. Coronary arterial disease. 6. Left-sided nephrolithiasis. Please refer to below summary of Fleischner criteria recommendations for follow-up of incidental CT nodules (Gerry Vizcarra, Guidelines for management of small pulmonary nodules detected on CT scans: A statement from the Fleischner Society, Radiology 237: [phone].) SOLID NODULES Multiple nodules size: 6-8 mm * Low risk patients: follow-up at 3-6 months, then consider further follow-up at 18-24 months * high risk patients: follow-up at 3-6 months, then at 18-24 months if no change Note: newly detected indeterminate nodule in persons 35 years of age or older. * Low risk patients: minimal or absent history of smoking and/or other known risk factors * high risk patients: history of smoking or of other known risk factors (e.g. first degree relative with lung cancer, or exposure to asbestos, radon, uranium) * if a nodule up to 8 mm is partly solid or is ground glass further follow-up is required after 24 months to exclude possible slow growing adenocarcinoma (SUZY) The above report was generated using voice recognition software. It may contain grammatical, syntax or spelling errors. Electronically signed by: Rashid Boss M.D. 12/20/2017 1:28 PM Dictated Date/Time: 12/20/2017 1:17 PM
== END | disposition home or self-care (01) ==
LOC: C.CTS 12:06
PROVIDERS: ATTEND Internal Medicine Pulmonary Disease
DX: J84.9 Interstitial pulmonary disease, unspecified (principal); R91.8 Other nonspecific abnormal finding of lung field; I25.10 Atherosclerotic heart disease of native coronary artery without angina pectoris; N20.0 Calculus of kidney